=== PATIENT | male | born 1980 | race Two or more races ===

== ENCOUNTER 2019-12-11 09:33 | Outpatient (CLI) | payer OTHER | END 2019-12-11 15:00 | disposition home or self-care (01) | LOC: LAB 09:33 | PROVIDERS: ATTEND Internal Medicine Gastroenterology | DX: K57.92 Diverticulitis of intestine, part unspecified, without perforation or abscess without bleeding (principal); R10.13 Epigastric pain; R30.0 Dysuria; D64.89 Other specified anemias ==

== ENCOUNTER → 2019-12-11 | Outpatient (CLI) | payer OTHER | END | disposition home or self-care (01) | LOC: TOM 11:34 | PROVIDERS: ATTEND Internal Medicine Gastroenterology | DX: K57.92 Diverticulitis of intestine, part unspecified, without perforation or abscess without bleeding (principal); R10.13 Epigastric pain; R10.2 Pelvic and perineal pain ==

== ENCOUNTER 2020-04-24 06:05 | Day surgery (SDC) | payer OTHER ==
[~2020-04-24 06:05] MED LIST: TENORMIN25 MG PO
== END 2020-04-24 18:05 | disposition home or self-care (01) ==
LOC: CIR.AMB 06:05
PROVIDERS: ATTEND Surgery
DX: K60.3 Anal fistula (principal); Z20.828 Contact with and (suspected) exposure to other viral communicable diseases

== ENCOUNTER 2020-07-24 09:19 | Day surgery (SDC) | payer OTHER ==
[2020-07-24] MEDS ORDERED: PERCOCET 5-3251 EACH PO (17:18)
== END 2020-07-24 19:50 | disposition home or self-care (01) ==
LOC: CIR.AMB 09:19
PROVIDERS: ATTEND Surgery
DX: K60.5 Anorectal fistula (principal); Z20.822 Contact with and (suspected) exposure to COVID-19